=== PATIENT | female | born 1960 | race Caucasian/White ===

== ENCOUNTER 2020-02-26 15:43 | Emergency (ER) | payer SELFPAY ==
[~2020-02-26] VITALS: Ht 162.6 cm; Wt 79.0 kg
[~2020-02-26 15:43] MED LIST: CHOL2000 PO; FLUO40CA9 PO; METO50TA6 PO; TOPI100T42 PO; ZOLP6.252 PO
[2020-02-26 16:12] VITALS: BP 168/87
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
[2020-02-26] MEDS ORDERED: NAPR-683 PO (17:35)
== END 2020-02-26 17:45 | disposition home or self-care (01) ==
LOC: ER 15:43
DX: S29.8XXA Other specified injuries of thorax, initial encounter (principal); R07.89 Other chest pain; R55 Syncope and collapse; R41.0 Disorientation, unspecified; F32.9 Major depressive disorder, single episode, unspecified; G43.909 Migraine, unspecified, not intractable, without status migrainosus; Z98.51 Tubal ligation status; Z98.890 Other specified postprocedural states; Z87.891 Personal history of nicotine dependence; Z88.2 Allergy status to sulfonamides; V49.9XXA Car occupant (driver) (passenger) injured in unspecified traffic accident, initial encounter; Y93.89 Activity, other specified; Y92.413 State road as the place of occurrence of the external cause; Y99.8 Other external cause status
CPT/HCPCS: 70450; 71045; 72125; 99285